=== PATIENT | male | born 1980 | race African-American/Black ===

== ENCOUNTER 2019-01-12 11:02 | Emergency (ER) | payer SELFPAY ==
[~2019-01-12] VITALS: Ht 175.3 cm; Wt 85.5 kg
[2019-01-12 11:43] VITALS: BP 116/72
== END 2019-01-12 11:52 | disposition left against medical advice (07) ==
LOC: EMS 11:03
DX: T40.1X1A Poisoning by heroin, accidental (unintentional), initial encounter (principal); F11.10 Opioid abuse, uncomplicated; F12.90 Cannabis use, unspecified, uncomplicated; F15.90 Other stimulant use, unspecified, uncomplicated; F17.210 Nicotine dependence, cigarettes, uncomplicated; Y92.89 Other specified places as the place of occurrence of the external cause
CPT/HCPCS: 99406